=== PATIENT | female | born 1955 | race Caucasian/White ===

== ENCOUNTER 2024-01-03 00:04 | Inpatient (IN) | payer MEDICARE ==
[~2024-01-03] VITALS: Ht 162.6 cm; Wt 100.2 kg
[2024-01-03] VITALS (9 sets, daily range): BP systolic 125–150; BP diastolic 71–88; PULSE 63–97; RESP 18–20; TEMP 97.5–100.2; O2SAT 97–100
[2024-01-03 05:02] LABS: BASOPHILS % (AUTO) 0.2 % (0.0-2.0); EOSINOPHILS % (AUTO) 0.1 % (0.0-4.0); HEMATOCRIT 35.6 % (36-48); HEMOGLOBIN 12.9 g/dL (12.0-16.0); LYMPHOCYTES # (AUTO) 0.6 K/uL (2.5-16.5); LYMPHOCYTES % (AUTO) 8.5 % (20.5-51.1); MEAN CORPUSCULAR HEMOGLOBIN 35 pg (27-31); MEAN CORPUSCULAR HGB CONC 36 g/dL (33-37); MEAN CORPUSCULAR VOLUME 97.3 fL (80-94); MONOCYTES # (AUTO) 0.7 K/uL (0.8-1.0); MONOCYTES % (AUTO) 9.8 % (1.7-9.3); NEUTROPHILS # (AUTO) 5.6 K/uL (1.8-7.7); NEUTROPHILS % (AUTO) 81.4 % (42.2-75.2); PLATELET COUNT (AUTO) 52 K/uL (140-450); RED BLOOD CELL COUNT(AUTO) 3.65 MIL/uL (4.20-5.40); RED CELL DISTRIBUTION WIDTH 12.6 % (11.6-13.7); WHITE BLOOD COUNT (AUTO) 6.8 K/uL (4.8-10.8)
[2024-01-03 05:13] LABS: ANION GAP 15.7 (8-16); CALCIUM 8.1 mg/dL (8.5-10.1); CARBON DIOXIDE 22.5 mmol/L (21-32); CREATININE 0.8 mg/dL (0.6-1.3); POTASSIUM 3.2 mmol/L (3.5-5.1)
[2024-01-03] MEDS: NACL 0.9% 1,000 ML IV ONE (06:24)
[2024-01-03] MEDS: KCL 20 MEQ IN 100 mL PREMIX 100 ML IV ONE (06:25)
[2024-01-03] MEDS ORDERED: LISI-951 PO (07:00)
[2024-01-03 07:05] LABS: APPEARANCE,URINE CLEAR (CLEAR); BILIRUBIN,URINE NEGATIVE (NEGATIVE); BLOOD, URINE 2+ (NEGATIVE); COLOR,URINE YELLOW (YELLOW); LEUKOCYTE ESTERASE ,URINE NEGATIVE (NEGATIVE); NITRITE, URINE NEGATIVE (NEGATIVE); PH,URINE 6.5 (5.0-9.0); PROTEIN,URINE NEGATIVE (NEGATIVE); UGLUCOSE NEGATIVE (NEGATIVE); UROBILINOGEN,URINE 0.2 EU/dL (0.2 - 1)
[2024-01-03] MEDS ORDERED: ONDANSETRON 4 MG/2 ML VIAL IVP PRN (07:45)
[2024-01-03 08:55] LABS: BACTERIA,URINE None Seen /HPF (None Seen); MUCUS,URINE None Seen /LPF (None Seen); RBC,URINE 11-20 (MOD) /HPF (0-5); SQUAMOUS EPITHELIAL CELL,UR 0-3 (FEW) /LPF (0-3 (FEW))
[2024-01-03] MEDS: NACL 0.9% 1,000 ML IV SCH (09:15)
[2024-01-03 10:37] LABS: ANION GAP 11.9 (8-16); CALCIUM 8.2 mg/dL (8.5-10.1); CARBON DIOXIDE 24.4 mmol/L (21-32); CREATININE 0.8 mg/dL (0.6-1.3); POTASSIUM 3.3 mmol/L (3.5-5.1)
[2024-01-03 11:58] LABS: ANION GAP 12.2 (8-16); CALCIUM 8.3 mg/dL (8.5-10.1); CARBON DIOXIDE 25.2 mmol/L (21-32); CREATININE 0.7 mg/dL (0.6-1.3); POTASSIUM 3.4 mmol/L (3.5-5.1)
[2024-01-03] MEDS: POTASSIUM CHLORIDE 10 MEQ TABER PO SCH (13:13)
[2024-01-03] MEDS ORDERED: KETOROLAC 30 MG/ML VIAL IM PRN (20:15)
[2024-01-03] MEDS: KETOROLAC 30 MG/ML VIAL IVP PRN (20:55)
[2024-01-03] MEDS: NACL 3% 500 ML IV ONE (21:15)
[2024-01-04] VITALS (7 sets, daily range): BP systolic 104–148; BP diastolic 70–76; PULSE 60–81; RESP 18–20; TEMP 98–99; O2SAT 97–99
[2024-01-04 00:28] LABS: ANION GAP 11.9 (8-16); CALCIUM 7.8 mg/dL (8.5-10.1); CREATININE 0.7 mg/dL (0.6-1.3); POTASSIUM 3.9 mmol/L (3.5-5.1)
[2024-01-04 05:44] LABS: BASOPHILS % (AUTO) 0.5 % (0.0-2.0); EOSINOPHILS # (AUTO) 0.1 K/uL (0-0.4); EOSINOPHILS % (AUTO) 3.1 % (0.0-4.0); HEMATOCRIT 31.1 % (36-48); HEMOGLOBIN 11.3 g/dL (12.0-16.0); LYMPHOCYTES # (AUTO) 0.7 K/uL (2.5-16.5); MEAN CORPUSCULAR HEMOGLOBIN 36 pg (27-31); MEAN CORPUSCULAR HGB CONC 36 g/dL (33-37); MEAN CORPUSCULAR VOLUME 98.2 fL (80-94); MONOCYTES # (AUTO) 0.6 K/uL (0.8-1.0); MONOCYTES % (AUTO) 15.1 % (1.7-9.3); NEUTROPHILS # (AUTO) 2.6 K/uL (1.8-7.7); NEUTROPHILS % (AUTO) 64.3 % (42.2-75.2); PLATELET COUNT (AUTO) 61 K/uL (140-450); RED BLOOD CELL COUNT(AUTO) 3.17 MIL/uL (4.20-5.40); RED CELL DISTRIBUTION WIDTH 12.5 % (11.6-13.7)
[2024-01-04 06:10] LABS: ANION GAP 12.1 (8-16); CALCIUM 7.8 mg/dL (8.5-10.1); CARBON DIOXIDE 21.9 mmol/L (21-32); CREATININE 0.7 mg/dL (0.6-1.3)
[2024-01-04] MEDS: lisinopriL 10 MG TAB PO SCH (10:18)
[2024-01-04] MEDS: SODIUM CHLORIDE 1 GM TAB PO SCH ×2 (10:18→14:54)
[2024-01-04 10:47] LABS: ANION GAP 9.9 (8-16); CARBON DIOXIDE 25.2 mmol/L (21-32); CREATININE 0.8 mg/dL (0.6-1.3); POTASSIUM 4.1 mmol/L (3.5-5.1)
[2024-01-04 12:53] LABS: ANION GAP 11.2 (8-16); CALCIUM 8.3 mg/dL (8.5-10.1); CARBON DIOXIDE 23.1 mmol/L (21-32); CREATININE 0.8 mg/dL (0.6-1.3); POTASSIUM 4.3 mmol/L (3.5-5.1)
[2024-01-04 13:12] LABS: CREATININE,URINE RANDOM 7 mg/dL (30-125); POTASSIUM,URINE RANDOM 8 mmol/L (12-75); URINE SODIUM, RANDOM 17 mmol/l (40-220)
[2024-01-04 16:29] LABS: ANION GAP 10.5 (8-16); CALCIUM 7.9 mg/dL (8.5-10.1); CREATININE 0.7 mg/dL (0.6-1.3); POTASSIUM 4.5 mmol/L (3.5-5.1)
[2024-01-04 20:11] LABS: ANION GAP 10.8 (8-16); CALCIUM 7.9 mg/dL (8.5-10.1); CARBON DIOXIDE 24.3 mmol/L (21-32); CREATININE 0.9 mg/dL (0.6-1.3); POTASSIUM 4.1 mmol/L (3.5-5.1)
[2024-01-05] VITALS: BP 165/80; PULSE 76; PULSE 77; RESP 19; TEMP 97.5; O2SAT 95
[2024-01-05 00:50] LABS: CALCIUM 7.8 mg/dL (8.5-10.1); CARBON DIOXIDE 24.3 mmol/L (21-32); CREATININE 0.8 mg/dL (0.6-1.3); POTASSIUM 4.3 mmol/L (3.5-5.1)
[2024-01-05] MEDS: SODIUM CHLORIDE 1 GM TAB PO ONE (01:18)
[2024-01-05 04:00] VITALS: BP 168/82; PULSE 65; PULSE 67; RESP 18; TEMP 97.2; O2SAT 97
[2024-01-05 05:35] LABS: BASOPHILS % (AUTO) 0.6 % (0.0-2.0); EOSINOPHILS # (AUTO) 0.2 K/uL (0-0.4); EOSINOPHILS % (AUTO) 3.9 % (0.0-4.0); HEMATOCRIT 31.7 % (36-48); HEMOGLOBIN 11.3 g/dL (12.0-16.0); LYMPHOCYTES # (AUTO) 0.8 K/uL (2.5-16.5); LYMPHOCYTES % (AUTO) 16.7 % (20.5-51.1); MEAN CORPUSCULAR HEMOGLOBIN 35 pg (27-31); MEAN CORPUSCULAR HGB CONC 36 g/dL (33-37); MONOCYTES # (AUTO) 0.8 K/uL (0.8-1.0); MONOCYTES % (AUTO) 17.9 % (1.7-9.3); NEUTROPHILS # (AUTO) 2.8 K/uL (1.8-7.7); NEUTROPHILS % (AUTO) 60.9 % (42.2-75.2); PLATELET COUNT (AUTO) 85 K/uL (140-450); RED CELL DISTRIBUTION WIDTH 12.6 % (11.6-13.7); WHITE BLOOD COUNT (AUTO) 4.6 K/uL (4.8-10.8)
[2024-01-05] MEDS ORDERED: hydrALAZINE 20 MG/ML VIAL IVP PRN (06:20)
[2024-01-05 06:26] LABS: CREATININE 0.7 mg/dL (0.6-1.3)
[2024-01-05 08:00] VITALS: BP 135/61; PULSE 62; RESP 18; TEMP 98.2; O2SAT 98
[2024-01-05 08:39] LABS: ANION GAP 10.6 (8-16); CALCIUM 8.1 mg/dL (8.5-10.1); CARBON DIOXIDE 23.5 mmol/L (21-32); CREATININE 0.7 mg/dL (0.6-1.3); POTASSIUM 4.1 mmol/L (3.5-5.1)
[2024-01-05] MEDS: SODIUM CHLORIDE 1 GM TAB PO SCH (09:43)
[2024-01-05 12:00] VITALS: BP 137/70; PULSE 68; RESP 18; TEMP 98.4; O2SAT 99
[2024-01-05 12:16] LABS: ANION GAP 10.3 (8-16); CALCIUM 8.2 mg/dL (8.5-10.1); CREATININE 0.7 mg/dL (0.6-1.3); POTASSIUM 4.3 mmol/L (3.5-5.1)
[2024-01-05 16:00] VITALS: BP 145/78; PULSE 72; RESP 18; TEMP 98.5; O2SAT 99
[2024-01-05 20:00] VITALS: BP 102/69; PULSE 72; RESP 18; TEMP 98; O2SAT 96
[2024-01-05 21:12] LABS: ANION GAP 16.2 (8-16); CARBON DIOXIDE 20.4 mmol/L (21-32); CREATININE 0.8 mg/dL (0.6-1.3); POTASSIUM 4.6 mmol/L (3.5-5.1)
[2024-01-06 04:00] VITALS: BP 152/68; PULSE 68; RESP 19; TEMP 97.5; O2SAT 94
[2024-01-06 08:00] VITALS: PULSE 62; RESP 20; O2SAT 96
[2024-01-06 09:26] LABS: ANION GAP 11.1 (8-16); CALCIUM 8.2 mg/dL (8.5-10.1); CARBON DIOXIDE 23.9 mmol/L (21-32); CREATININE 0.7 mg/dL (0.6-1.3)
[2024-01-06] MEDS: lisinopriL 10 MG TAB PO SCH (09:30)
[2024-01-06] MEDS ORDERED: SODI100076 PO (10:28)
[2024-01-06 11:52] VITALS: BP 156/74; PULSE 62; RESP 20; TEMP 97
[2024-01-06 12:00] VITALS: BP 156/74; PULSE 62; RESP 20; TEMP 97; O2SAT 96
== END 2024-01-06 15:00 | disposition home or self-care (01) | DRG 641 ==
LOC: MED 00:04 → MTU 07:48 → MMU 09:50
PROVIDERS: ADMIT Internal Medicine; ATTEND Internal Medicine
DX: E87.1 Hypo-osmolality and hyponatremia (principal); D69.6 Thrombocytopenia, unspecified; I10 Essential (primary) hypertension; E87.6 Hypokalemia; Z79.899 Other long term (current) drug therapy
CPT/HCPCS: 36415; 71045; 80048; 81001; 82570; 83735; 83935; 84133; 84300; 84484; 85025; 87081; 87086; 93005; 97110; 97116; 97163-GP; 97530; 99291; J1885; J3480; J3490; Q0092